=== PATIENT | female | born 1940 | race Caucasian/White ===

== ENCOUNTER 2023-07-21 14:29 | Emergency (ER) | payer MEDICARE ==
[~2023-07-21] VITALS: Ht 167.6 cm; Wt 124.7 kg
[2023-07-21 14:32] VITALS: BP 100/71; PULSE 70; RESP 18; O2SAT 100
[2023-07-21 17:25] LABS: BASOPHILS # (AUTO) 0.1 K/uL (0.00-0.22); BASOPHILS % (AUTO) 0.8 % (0.0-2.0); EOSINOPHILS # (AUTO) 0.1 K/uL (0-0.4); EOSINOPHILS % (AUTO) 1.6 % (0.0-4.0); HEMATOCRIT 40.8 % (36-48); HEMOGLOBIN 13.2 g/dL (12.0-16.0); LYMPHOCYTES # (AUTO) 1.3 K/uL (2.5-16.5); LYMPHOCYTES % (AUTO) 18.9 % (20.5-51.1); MEAN CORPUSCULAR HEMOGLOBIN 32 pg (27-31); MEAN CORPUSCULAR HGB CONC 32 g/dL (33-37); MEAN CORPUSCULAR VOLUME 98.8 fL (80-94); MONOCYTES # (AUTO) 0.5 K/uL (0.8-1.0); MONOCYTES % (AUTO) 7.4 % (1.7-9.3); NEUTROPHILS # (AUTO) 4.7 K/uL (1.8-7.7); NEUTROPHILS % (AUTO) 71.3 % (42.2-75.2); PLATELET COUNT (AUTO) 222 K/uL (140-450); RED BLOOD CELL COUNT(AUTO) 4.13 MIL/uL (4.20-5.40); RED CELL DISTRIBUTION WIDTH 13.2 % (11.6-13.7); WHITE BLOOD COUNT (AUTO) 6.7 K/uL (4.8-10.8)
[2023-07-21 17:52] LABS: ALANINE AMINOTRANSFERASE 45 U/L (12-78); ALBUMIN 2.6 g/dL (3.4-5.0); ALKALINE PHOSPHATASE 89 U/L (50-136); ANION GAP 6.9 (8-16); ASPARTATE AMINOTRANSFERASE 37 U/L (15-37); CALCIUM 8.5 mg/dL (8.5-10.1); CARBON DIOXIDE 37.2 mmol/L (21-32); CHLORIDE 104 mmol/L (98-107); CREATININE 0.7 mg/dL (0.6-1.3); GLUCOSE 93 mg/dL (74-106); POTASSIUM 4.1 mmol/L (3.5-5.1); SODIUM SERUM 144 mmol/L (136-145); TOTAL BILIRUBIN 0.5 mg/dL (0.0-1.0); TOTAL PROTEIN, SERUM 6.7 g/dL (6.4-8.2); UREA NITROGEN, BLOOD 18 mg/dL (7-18)
[2023-07-21 17:55] LABS: LACTIC ACID 1.9 mmol/L (0.4-2.0)
[2023-07-21 18:30] LABS: INR 0.93 (0.8-1.2); PARTIAL THROMBOPLASTIN TIME 24.1 secs (22-35.6); PROTHROMBIN TIME 9.8 secs (10.8-13.4)
[2023-07-21 20:51] VITALS: BP 139/59; PULSE 60; RESP 19
[2023-07-21 20:52] VITALS: O2SAT 99
[2023-07-21 21:37] LABS: APPEARANCE,URINE HAZY (CLEAR); BLOOD, URINE NEGATIVE (NEGATIVE); COLOR,URINE YELLOW (YELLOW); PROTEIN,URINE TRACE (NEGATIVE); UGLUCOSE NEGATIVE (NEGATIVE)
[2023-07-21 21:38] LABS: BILIRUBIN,URINE NEGATIVE (NEGATIVE); LEUKOCYTE ESTERASE ,URINE NEGATIVE (NEGATIVE); NITRITE, URINE POSITIVE (NEGATIVE); UROBILINOGEN,URINE 0.2 EU/dL (0.2 - 1)
[2023-07-21 23:40] LABS: BLOOD GAS BASE EXCESS 5.6 mmol/L (-2.0-2.0); BLOOD GAS HCO3 30.5 mmol/L (22-26); BLOOD GAS PCO2 45.4 mmHg (35-45); BLOOD GAS PO2 96.8 mmHg (75-100)
[2023-07-21 23:41] LABS: BLOOD GAS O2 SAT% 97.6 % (92.0-98.5)
== END 2023-07-21 23:29 | disposition short-term general hospital (02) ==
LOC: MED 14:29
DX: U07.1 COVID-19 (principal); J96.01 Acute respiratory failure with hypoxia; L89.151 Pressure ulcer of sacral region, stage 1; L89.322 Pressure ulcer of left buttock, stage 2; L89.312 Pressure ulcer of right buttock, stage 2; F03.90 Unspecified dementia, unspecified severity, without behavioral disturbance, psychotic disturbance, mood disturbance, and anxiety; I50.9 Heart failure, unspecified; Z95.0 Presence of cardiac pacemaker; Z86.73 Personal history of transient ischemic attack (TIA), and cerebral infarction without residual deficits; Z96.643 Presence of artificial hip joint, bilateral; Z86.718 Personal history of other venous thrombosis and embolism
CPT/HCPCS: 36415; 36600; 71045; 80053; 81003; 83605; 83880; 84484; 85025; 85610; 85730; 87040; 87086; 93005; 99285; Q0092